=== PATIENT | female | born 1985 | race Caucasian/White ===

== ENCOUNTER → 2017-06-10 | Outpatient (CLI) | payer OTHER ==
[~2017-06-10] MED LIST: AMOXICILLIN 50500 MG PO; DICLEGIS1 TCP PO; FLINTSTONES1 CTB PO; HYDROCODONE1 TABLET PO; IBUPROFEN200 MG PO; LORTAB 5/500 501 TAB PO; MOTRIN 400MG.400 MG PO; MOTRIN400 MG PO; NICOTINE T21 MG/24 H TD; NOMEDS; ORTHO MICRONO0.35 MG PO; PERCOCET 5/3251 EACH PO; PNV-TOTAL1 SGL; PRENATAL PLUS1 TA1 PO; TYLENOL 8 HOUR650 MG PO; ZANTAC 150150 MG PO; ZOLOFT 50MG TAB50 MG PO
== END ==
LOC: LAB 13:12
DX: N39.0 Urinary tract infection, site not specified (principal)